=== PATIENT | male | born 1970 | race African-American/Black ===

== ENCOUNTER 2020-07-26 17:30 | Emergency (ER) | payer OTHER, SELFPAY ==
--- NOTE | ~2020-07-26 | XR_ITS ---
XR chest 2V DATE: 07/26/2020 19:21 INDICATION: Right anterior chest pain TECHNIQUE: PA and lateral views COMPARISON: 02/08/2014 PA and lateral chest FINDINGS: Normal heart size. No hilar or mediastinal enlargement. No pulmonary infiltrate or consolid ation, pleural effusion or pulmonary vascular congestion or pneumothorax is detected. Degenerative spurring of the thoracic spine. IMPRESSION: No active cardiopulmonary disease Reviewed, dictated and finalized at location A.
--- NOTE | 2020-07-26 17:33 | ECG_ITS ---
Measurements Intervals [place] Rate: 56 P: 35 NE: 173 QRS: -16 QRSD: 105 T: 7 QT: 372 QTc: 359 Interpretive Statements SINUS BRADYCARDIA VOLTAGE CRITERIA FOR LVH MINIMAL Q WAVES- HIGH LATERAL LEADS BORDERLINE ECG Electronically Signed On 07-26-2020 19:30:36 CDT by Devante Perdo D.O.
[2020-07-26 17:34] VITALS: BP 132/81; PULSE 63; RESP 17; TEMP 36.3; O2SAT 97
--- NOTE | 2020-07-26 19:34 | PC.NURSE ---
CALL FOR PT, NO RESPONSE. ATTEMPTED TO LOOK FOR THE PT, NOT THERE. FORK REPAIRER AWARE
[2020-07-26 21:11] LABS: Basophils Percent Auto 0.3 % (0.2-1.2); Eosinophils Absolute Auto 0.1 K/mm3 (0-0.3); Eosinophils Percent Auto 2.4 % (0-4.4); Hemoglobin 14.2 g/dL (14.0-18.0); Immature Granulocyte Absolute 0.02 K/mm3 (0.00-0.031); Immature Granulocyte Percent A 0.3 % (0-0.5); Lymphocytes Absolute Auto 1.41 K/mm3 (0.9-3.2); Lymphocytes Percent Auto 24.5 % (18.3-44.2); Mean Corpuscular HGB Conc 31.6 g/dl (32-36); Mean Corpuscular Hemoglobin 29.4 pg (26-34); Mean Corpuscular Volume 93.2 fl (80-100); Mean Platelet Volume 12.9 fl (7.4-10.4); Monocytes Absolute Auto 0.6 K/mm3 (0.1-0.6); Monocytes Percent Auto 9.5 % (2.6-8.5); Neutrophils Absolute Auto 3.6 K/mm3 (1.3-6.7); Platelet Count Result 167 k/mm3 (150-375); Red Blood Count 4.83 M/mm3 (4.6-6.20); Red Cell Distribution Width 13.2 % (11.5-14.5); White Blood Count 5.8 K/mm3 (4.5-10.0)
[2020-07-26 21:19] LABS: INR 0.9; Prothrombin Time 12.9 Seconds (11.1-14.7)
[2020-07-26 21:21] LABS: Alanine Aminotransferase 43 U/L (4-50); Albumin Level 4.9 g/dL (3.5-5.1); Alkaline Phosphatase 74 U/L (38-126); Anion Gap 12 mmol/L (8-16); Aspartate Amino Transferase 32 U/L (17-59); Bilirubin,Total 0.6 mg/dL (0.2-1.3); Blood Urea Nitrogen 17 mg/dL (9-20); Calcium 9.9 mg/dL (8.4-10.2); Carbon Dioxide 27 mmol/L (22-30); Chloride 107 mmol/L (98-107); Estimated CRCL calculation 97 ml/min; Estimated Glomerular Filt Rate > 60; Glucose 94 mg/dL (75-110); Lipase 106 U/L (23-300); Potassium 3.7 mmol/L (3.4-5.0); Sodium 146 mmol/L (137-145)
[2020-07-26 21:32] LABS: Troponin I < 0.012 ng/mL (0.000-0.034)
[2020-07-26] MEDS: KETOROLAC (*BKC) 60 MG/2 ML VIAL (22:22)
--- NOTE | 2020-07-26 22:22 | PC.NURSE ---
pt has no IV, asked Dr. Lopez if he wanted 30 IM, MD ordered 60mg IM. meds given as ordered.
--- NOTE | 2020-07-26 23:15 | ED.CHESTPAIN ---
HPI - Chest Pain General Chief Complaint: Chest Pain <David Lopez MD - Last Filed: 08/21/20 20:31> Stated Complaint: chest pain <David Lopez MD - Last Filed: 08/21/20 20:31> Time Seen by Provider: 07/26/20 20:52 <David Lopez MD - Last Filed: 08/21/20 20:31> Source: patient <David Lopez MD - Last Filed: 08/21/20 20:31> Mode of arrival: ambulatory <David Lopez MD - Last Filed: 08/21/20 20:31> Limitations: no limitations <David Lopez MD - Last Filed: 08/21/20 20:31> History of Present Illness HPI narrative: 49-year-old male Patient is in good health For about 3 weeks he has been having periodic right anterior chest pains They are not exertional in fact mainly seem to be mostly exacerbated by pushing on the area which is mildly tender He does not have exertional symptoms, no fever or cough, no abdominal pains, no nausea or vomiting <David Lopez MD - Last Filed: 08/21/20 20:31> Related Data Home Medications: Home Medications Medication Instructions Recorded Confirmed No Home Medications 07/26/20 07/26/20 <David Lopez MD - Last Filed: 08/21/20 20:31> Allergies/Adverse Reactions: Allergies Allergy/AdvReac Type Severity Reaction Status Date / Time No Known Allergies Allergy Mild Verified 07/26/20 17:36 <David Lopez MD - Last Filed: 08/21/20 20:31> Review of Systems Review of Systems: All systems reviewed & are unremarkable except as noted in HPI and below <David Lopez MD - Last Filed: 08/21/20 20:31> Constitutional: Constitutional: Reports no additional constitutional complaints, Denies chills, Denies fever(s) and Denies headache(s) <David Lopez MD - Last Filed: 08/21/20 20:31> Eyes: Eyes: Reports no additional eye complaints and Denies change in vision <David Lopez MD - Last Filed: 08/21/20 20:31> ENT: Denies headache(s) and Denies sore throat <David Lopez MD - Last Filed: 08/21/20 20:31> Cardiovascular: Cardiovascular: Reports chest pain, Denies rapid heart rate, Denies radiating jaw, neck or arm pain and Denies dyspnea <David Lopez MD - Last Filed: 08/21/20 20:31> Respiratory: Respiratory: Denies cough and Denies dyspnea <David Lopez MD - Last Filed: 08/21/20 20:31> Gastrointestinal: Gastrointestinal: Denies nausea and Denies vomiting <David Lopez MD - Last Filed: 08/21/20 20:31> Genitourinary: Genitourinary: Denies dysuria and Denies urinary frequency <David Lopez MD - Last Filed: 08/21/20 20:31> Musculoskeletal: Musculoskeletal: Denies deformity, Denies arthralgias, Denies joint swelling and Denies numbness <David Lopez MD - Last Filed: 08/21/20 20:31> Integumentary/Breasts: Skin/Breast: Denies rash and Denies wounds <David Lopez MD - Last Filed: 08/21/20 20:31> Neurologic: Denies headache(s), Denies focal weakness and Denies numbness <David Lopez MD - Last Filed: 08/21/20 20:31> Psychiatric: Psychiatric: Reports no additional psychiatric complaints <David Lopez MD - Last Filed: 08/21/20 20:31> Endocrine: Endocrine: Reports no additional endocrine complaints <David Lopez MD - Last Filed: 08/21/20 20:31> Hematologic/Lymphatic: Hematologic/Lymphatic: Reports no additional hematologic/lymphatic complaints <David Lopez MD - Last Filed: 08/21/20 20:31> Allergic/Immunologic: Allergic/Immunologic: Reports no additional allergic/immunologic complaints <David Lopez MD - Last Filed: 08/21/20 20:31> PMFSH Social History Social History: Social History Smoking status: Never smoker Second hand tobacco smoke exposure: No Alcohol intake: never Gender identity (if verbalized by the patient): Male <David Lopez MD - Last Filed: 08/21/20 20:31> Exam Const: General: cooperative, no acute distress and alert <David Lopez MD - Last Filed: 08/21/20 20:31> Orientation/consciousness: patient oriented x3 (alert) <David Lopez MD - Last File
[2020-07-26 23:38] VITALS: BP 118/76; PULSE 62; RESP 16; O2SAT 100
[2020-07-27 00:24] LABS: Troponin I < 0.012 ng/mL (0.000-0.034)
[2020-07-27 01:32] VITALS: BP 123/75; PULSE 64; RESP 16; TEMP 36.6; O2SAT 98
== END 2020-07-27 01:33 | disposition home or self-care (01) ==
PROVIDERS: Physician Assistant; Emergency Provider Emergency Medicine; PCP Family Medicine
DX: R07.9 Chest pain, unspecified (principal); R00.1 Bradycardia, unspecified; R94.31 Abnormal electrocardiogram [ECG] [EKG]
CPT/HCPCS: 36415; 71046; 80053; 83690; 84484; 85025; 85610; 85730; 93005; 96374; 99284; J1885

== ENCOUNTER 2023-03-29 13:34 | Emergency (ER) | payer OTHER, SELFPAY ==
--- NOTE | ~2023-03-29 | XR_ITS ---
EXAMINATION: XR chest 2V DATE: 03/29/2023 14:30 INDICATION: Right-sided chest pain TECHNIQUE: Frontal and lateral views of the chest are obtained COMPARISON: 07/26/2020 FINDINGS: The lungs are free of acute opacities. No pleural effusion or pneumothorax. The cardiomedia stinal silhouette is normal. There is moderate thoracic spondylosis. IMPRESSION: 1. No acute cardiopulmonary abnormality. Reviewed, dictated and finalized at location B. 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
[2023-03-29 13:49] VITALS: BP 148/89; PULSE 80; RESP 20; TEMP 36.9; O2SAT 97
--- NOTE | 2023-03-29 14:20 | ECG_ITS ---
Measurements Intervals [place] Rate: 72 P: 46 MN: 194 QRS: -11 QRSD: 110 T: 26 QT: 340 QTc: 375 Interpretive Statements SINUS RHYTHM POSSIBLE LEFT ATRIAL ENLARGEMENT [-0.1mV P-WAVE IN V1/V2] POSSIBLE LEFT VENTRICULAR HYPERTROPHY [VOLTAGE CRITERIA PLUS LAE OR QRS WIDENING] NONSPECIFIC T-WAVE ABNORMALITY BORDERLINE ECG COMPARED TO ECG 07/26/2020 17:41:19 SINUS RHYTHM NOW PRESENT T-WAVE ABNORMALITY NOW PRESENT Electronically Signed On 03-29-2023 16:31:41 FELLING BUCKING SUPERVISOR by Edinson Ames M.D.
--- NOTE | 2023-03-29 14:21 | ED.GENADULT ---
HPI - General Adult General Chief complaint: Unspecified Stated complaint: body aches Time Seen by Provider: 03/29/23 13:52 Source: patient Mode of arrival: ambulatory Limitations: no limitations History of Present Illness HPI narrative: This is a 52 year old male that presents to the ER for cold symptoms present since yesterday. Reports chills, cough, sore throat, rhinorrhea, congestion, myalgias and headache. Reports a burning chest pain. He has not taken any medications for his symptoms today. Denies fever. Related Data Allergies Allergy/AdvReac Type Severity Reaction Status Date / Time No Known Allergies Allergy Mild Verified 07/26/20 17:36 Review of Systems Review of Systems: CONSTITUTIONAL: Reports chills ENT: Reports rhinorrhea, congestion, sore throat CARDIOVASCULAR: Reports chest pain. Denies edema. RESPIRATORY: Reports cough. Denies dyspnea. MUSCULOSKELETAL: Reports back pain, joint pain, and myalgia. NEUROLOGIC: Reports headache All systems reviewed & are unremarkable except as noted in HPI and below PMFSH Past Medical History Medical History (Updated 03/29/23 @ 16:46 by Ya Roper PA-C) No active medical problems Social History Social History Smoking status: Never smoker Second hand tobacco smoke exposure: No Alcohol intake: never Gender identity (if verbalized by the patient): Male Exam Narrative: GENERAL: Well-appearing, well-nourished, and in no acute distress. HEAD: Normocephalic, atraumatic. EYES: EOMI. ENT: Nares clear, no rhinorrhea or epistaxis. Mucous membranes moist. Oropharynx without tonsillar hypertrophy exudate or other lesions. Bilateral TMs pearly henson non-bulging NECK: Supple. No adenopathy or masses. CHEST: Clear to auscultation. No respiratory distress. No wheezes rales or rhonchi HEART: Regular rate and rhythm. No murmur heard. Normal peripheral pulses. EXTREMITIES: Normal range of motion. No edema. SKIN: Warm, dry, no rash. NEURO: No focal deficits. Alert and oriented x3. PSYCH: Normal mood and affect Course Course Emergency Course: Patient updated on his workup and agrees with plan of care Vital Signs Vital signs: Vital Signs Temperature 98.5 F 03/29/23 13:49 Pulse Rate 80 03/29/23 13:49 Respiratory Rate 20 03/29/23 13:49 Blood Pressure 148/89 H 03/29/23 13:49 Pulse Oximetry 97 03/29/23 13:49 Oxygen Delivery Room Air 03/29/23 13:49 Temperature 98.5 F 03/29/23 13:49 Pulse Rate 80 03/29/23 13:49 Respiratory Rate 20 03/29/23 13:49 Blood Pressure 148/89 H 03/29/23 13:49 Pulse Oximetry 97 03/29/23 13:49 Oxygen Delivery Room Air 03/29/23 13:49 Medical Decision Making MDM Narrative Medical decision making narrative: Patient presents to the ER for cold symptoms present over the last couple of days. Reports congestion, sore throat, myalgias, headache. Also endorsing some chest discomfort that is burning in nature. He is afebrile and nontoxic appearing. His vitals are stable. Oxygen saturation is normal on room air. Lungs are clear on exam. CBC without leukocytosis. Shows normocytic anemia with hemoglobin of 13.3. Metabolic panel with mild hypokalemia. This was replaced. Magnesium is normal. Patient is COVID positive. Chest x-ray without acute cardiopulmonary abnormality. EKG without acute ST changes and baseline troponin is negative. His pain was relieved with Pepcid and Tylenol. Patient updated on his workup and agrees with plan of care. He is to follow up with his PCP. He was given warnings to return to the ER Vital Signs Vital Signs: Vital Signs Temperature 98.5 F 03/29/23 13:49 Pulse Rate 80 03/29/23 13:49 Respiratory Rate 20 03/29/23 13:49 Blood Pressure 148/89 H 03/29/23 13:49 Pulse Oximetry 97 03/29/23 13:49 Oxygen Delivery Room Air 03/29/23 13:49 Temperature 98.5 F 03/29/23 13:49 Pulse Rate 80 03/29/23 13:49 Respiratory Rate 20 03/29/23 13:49 Blood Pressure 1
[2023-03-29 14:35] LABS: Influenza A QL RT-PCR Negative (Negative); Influenza B QL RT-PCR Negative (Negative); RSV RNA, RT-PCR Negative (Negative); SARS-CoV-2 RNA PCR Positive (Negative)
[2023-03-29] MEDS: FAMOTIDINE 20 MG TABLET PO (14:54)
[2023-03-29] MEDS: ACETAMINOPHEN 500 MG TABLET 1000 MG PO (14:54)
[2023-03-29 15:08] LABS: Basophils Percent Auto 0.3 % (0.2-1.2); Eosinophils Percent Auto 0.7 % (0-4.4); Hematocrit 41.3 % (42.0-52.0); Hemoglobin 13.3 g/dL (14.0-18.0); Immature Granulocyte Absolute 0.02 K/mm3 (0.00-0.031); Immature Granulocyte Percent A 0.3 % (0-0.5); Mean Corpuscular HGB Conc 32.2 g/dl (32-36); Mean Corpuscular Hemoglobin 29.3 pg (26-34); Mean Platelet Volume 12.1 fl (7.4-10.4); Monocytes Percent Auto 16.7 % (2.6-8.5); Neutrophils Absolute Auto 4.3 K/mm3 (1.3-6.7); Platelet Count Result 146 k/mm3 (150-375); Red Blood Count 4.54 M/mm3 (4.6-6.20); Red Cell Distribution Width 13.1 % (11.5-14.5)
[2023-03-29 15:18] LABS: Alanine Aminotransferase 35 U/L (6-50); Albumin Level 4.5 g/dL (3.5-5.1); Alkaline Phosphatase 77 U/L (38-126); Anion Gap 6 mmol/L (8-16); Aspartate Amino Transferase 26 U/L (17-59); Bilirubin,Total 0.6 mg/dL (0.2-1.3); Blood Urea Nitrogen 11 mg/dL (9-20); Calcium 9.2 mg/dL (8.4-10.2); Carbon Dioxide 30 mmol/L (22-30); Chloride 103 mmol/L (98-107); Estimated CRCL calculation 77 ml/min; Estimated Glomerular Filt Rate > 60; Glucose 109 mg/dL (65-110); Potassium 3.2 mmol/L (3.4-5.0); Sodium 139 mmol/L (137-145)
[2023-03-29 15:30] LABS: Troponin I < 0.012 ng/mL (0.000-0.034)
[2023-03-29 15:46] LABS: Magnesium 2.2 mg/dL (1.6-2.3)
[2023-03-29] MEDS: POTASSIUM CHLORIDE 20 MEQ ER TABLET 40 MEQ PO (16:08)
== END 2023-03-29 17:04 | disposition home or self-care (01) ==
PROVIDERS: Emergency Medicine; Emergency Provider Physician Assistant; PCP Family Medicine
DX: U07.1 COVID-19 (principal); E87.6 Hypokalemia
CPT/HCPCS: 36415; 71046; 80053; 83735; 84484; 85025; 87637; 93005; 99284; A9270

== ENCOUNTER 2024-12-07 10:33 | Emergency (ER) | payer OTHER, SELFPAY ==
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
--- OUTSIDE RECORDS SUMMARY | 2024-12-07 10:35 | XMS_ITS | Data Portability ---
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 Plan of Treatment Reminders Order Date Submit Date Provider Last Modified By Organization Details Last Modified Time Details Appointments None recorded. Lab CMP, serum or plasma 2024 025 BOOMANGEL Cordoba, 2022 [address], [address], [place], [address], 5 12:13:17 lipid panel, serum or plasma 2024 025 HARDWICK Beryl, 2022 Srin[address], [address], [place], [address], 5 12:13:17 CBC w/ auto diff 2024 025 HARDWICK Ramirez, 2022 Sriniv[address], [address], [place], [address], 5 12:13:17 TSH + free T4, serum 2024 025 HARDWICK [facility], 2022 [address], [address], [place], [address], 5 12:13:07 HbA1c (hemoglobi n A1c), blood 2024 025 HARDWICK Ramirez, 2022 Srinivasa [address], [address], [place], [address], 5 12:13:17 CMP, serum or plasma 2023 024 [facility], 2022 Sriniv[address], [address], [place], [address], 4 07:17:06 lipid panel, serum 2023 024 [facility], 2022 Srin[address], [address], [place], [address], 4 07:17:04 CBC w/ auto diff 2023 024 [facility], 2022 [address], [address], [place], [address], 4 07:17:09 TSH + free T4, serum 2023 024 [facility]ICK [facility], 2022 Srin[address], [address], [place], [address], 4 07:17:03 HbA1c (hemoglobi n A1c), blood 2023 024 [facility], 2022 Srinivasa [address], [address], [place], [address], 4 07:17:08 vitamin B12 + folate, serum or blood 2023 024 [facility], [address] [facility], [facility] [address], [place], [address], 4 07:17:07 vitamin D, 25-hydroxy , total, serum 2023 024 [facility], [address] [facility], [address], [place], [address], 4 07:17:10 CBC w/ auto diff 2020 021 BOOM [facility], [address], [address], [place], [address], 08:17:34 vitamin D, 25-hydroxy , total, serum 2020 BOOM [facility], [address], [address], [place], [address], 08:17:37 lipid panel, serum 2020 BOOM [facility], [address], [address], [place], [address], 08:17:35 CMP, serum or plasma 2020 BOOM [facility], [address], [address], [place], [address], 08:17:35 HbA1c (hemoglobi n A1c), blood 2020 BOOM [facility], [address], [address], [place], [address], 08:17:36 Referral sleep medicine referral [address] [facility] [place], [address] [place], [address], 4 09:05:41 gastroente rologist referral [address], [address], [place], [address], 4 08:02:[address] referral - chest pain intermitte ntly; advised to get stress test at [place] [facility]. Some diaphoresi s, no dyspnea, more fatigue than normal. 2020 021 ATHENAFAX Not available 14:50:30 Procedures None recorded. Surgeries None recorded. Imaging XR, knee, 3 view 2024 025 [email or web address] [facility] [address] [place], [address], 5 09:06:20 Medication Orders doxycyclin e hyclate 100 mg tablet 2024 025 [id number], [address], [place], [place], [id number], 5 05:01:32 cyclobenza bessy 5 mg tablet 2024 025 HARDWICK [facility]13812, [address], [place], [place], [id number], 5 05:01:50 cyclobenza bessy 5 mg tablet 2023 024 [facility], [address], [place], [place], [id number], 5 05:01:50 loratadine 10 mg tablet 2023 024 [facility], [address], [place], [place], [id number], 4 16:21:53 cyclobenza bessy 10 mg tablet 2020 021 [facility], [address], [place], [place], [id number], 4 14:23:58 Patient TargetsNo targets recorded. Patient Instructions Encounter Date Encounter Id Patient Instructions Last Modified By Organization Details Last Modified Time 08/03/2020 [id number] chest pain: care instructions [email or web address] Not available 08/03/2020 16:02:36 back care and preventing injuries: care instructions [email or web address] Not available 08/03/2020 16:02:36 06/22/2023 [id number] A healthy lifestyle: care instructions [email or web address] Not available 06/22/2023 14:28:39 costochondritis: care instructions [email or web address] Not available 06/22/2023 16:29:28 06/27/2024 [id number] A healthy lifestyle: care instructions [email or web address] Not available 06/27/2024 12:12:58 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 Some diaphoresis, no dyspnea, more fatigue than normal. Referring Physician: Sonia House, [facility], Encounter Date: 08/03/2020 Ac/Dc Rewinder Referral for Screening for malignant neoplasm of colon Referring Physician: Monserrat Coello [facility], Encounter Date: 06/22/2023 Sleep Medicine Referral for Daytime hypersomnia Referring Physician: Monserrat Coello [facility], Encounter Date: 10/12/2023 Results Created Date Observation Date Name Description Value Unit Range Abnormal Flag Note LastModifiedBy Organization Detail LastModifiedTime 08/15/19 21 08/15/2020 CBC WITH DIFFE RENTI AL/PL ATELE T WBC 5.0 x10e3 /uL 3.4-10 .8 Not Available [facility] ([facility]) [address] [place], [address], 08/15/2020 08:17:34 08/15/1908/15/2020 CBC WITH DIFFE RENTI AL/PL ATELE T RBC 4.31 x10e6 /uL 4.14-5 .80 Not Available [facility] ([facility]) [address] [place], [address], 08/15/2020 08:17:34 08/15/19 21 08/15/2020 CBC WITH DIFFE RENTI AL/PL ATELE T hemoglobin 12.9 g/dL 13.0-1 7.7 below low normal Not Available [facility] ([facility]) [address] [place], [address], 08/15/2020 08:17:34 08/15/19 21 08/15/2020 CBC WITH DIFFE RENTI AL/PL ATELE T hematocrit 39.7 % 37.5-5 1.0 Not Available [facility] ([facility]) [address] [facility], [place], [address], 08/15/2020 08:17:34 08/15/19 21 08/15/2020 CBC WITH DIFFE RENTI AL/PL ATELE T MCV 92 fL 79-97 Not Available [facility] ([facility]) [address] [facility], [place], [address], 08/15/2020 08:17:34 08/15/19 21 08/15/2020 CBC WITH DIFFE RENTI AL/PL ATELE T MCH 29.9 pg 26.6-3 3.0 Not Available [facility] ([facility]) [address] [facility], [place], [address], 08/15/2020 08:17:34 08/15/19 21 08/15/2020 CBC WITH DIFFE RENTI AL/PL ATELE T MCHC 32.5 g/dL 31.5-3 5.7 Not Available [facility] ([facility]) [address] [facility], [place], [address], 08/15/2020 08:17:34 08/15/1908/15/2020 CBC WITH DIFFE RENTI AL/PL ATELE T RDW 12.9 % 11.6-1 5.4 Not Available [facility] ([facility]) [address] [place], [address], 08/15/2020 08:17:34 08/15/19 21 08/15/2020 CBC WITH DIFFE RENTI AL/PL ATELE T platelets 144 x10e3 /uL 150-45 0 below low normal Not Available [facility] ([facility]) [address] [place], [address], 08/15/2020 08:17:34 08/15/19 21 08/15/2020 CBC WITH DIFFE RENTI AL/PL ATELE T neutrophils 63 % not estab. Not Available [facility] ([facility]) [address] [facility], [place], [address], 08/15/2020 08:17:34 08/15/19 21 08/15/2020 CBC WITH DIFFE RENTI AL/PL ATELE T lymphs 25 % not estab. Not Available [facility] ([facility]) [address] [facility], [place], [address], 08/15/2020 08:17:34 08/15/19 21 08/15/2020 CBC WITH DIFFE RENTI AL/PL ATELE T monocytes 9 % not estab. Not Available [facility] ([facility]) [address] [facility], [place], [address], 08/15/2020 08:17:34 08/15/19 21 08/15/2020 CBC WITH DIFFE RENTI AL/PL ATELE T eos 2 % not estab. Not Available [facility] ([facility]) [address] [facility], [place], [address], 08/15/2020 08:17:34 08/15/19 21 08/15/2020 CBC WITH DIFFE RENTI AL/PL ATELE T basos 0 % not estab. 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 0 Not Available [facility] ([facility]) [address] [facility], [place], [address], 08/15/2020 08:17:34 08/15/19 21 08/15/2020 CBC WITH DIFFE RENTI AL/PL ATELE T lymphs (absolute) 1.3 x10e3 /uL 0.7-3. 1 Not Available [facility] ([facility]) [address] [facility], [place], [address], 08/15/2020 08:17:34 08/15/19 21 08/15/2020 CBC WITH DIFFE RENTI AL/PL ATELE T monocytes(ab solute) 0.4 x10e3 /uL 0.1-0. 9 Not Available [facility] ([facility]) [address] [facility], [place], [address], 08/15/2020 08:17:34 08/15/19 21 08/15/2020 CBC WITH DIFFE RENTI AL/PL ATELE T eos (absolute) 0.1 x10e3 /uL 0.0-0. 4 Not Available [facility] ([facility]) [address] [facility], [place], [address], 08/15/2020 08:17:34 08/15/19 21 08/15/2020 CBC WITH DIFFE RENTI AL/PL ATELE T baso (absolute) 0.0 x10e3 /uL 0.0-0. 2 Not Available [facility] ([facility]) [address] [facility], [place], [address], 08/15/2020 08:17:34 08/15/19 21 08/15/2020 CBC WITH DIFFE RENTI AL/PL ATELE T immature granulocytes 1 % not estab. Not Available [facility] ([facility]) [address] [facility], [place], [address], 08/15/2020 08:17:34 08/15/19 21 08/15/2020 CBC WITH DIFFE RENTI AL/PL ATELE T immature grans (abs) 0.0 x10e3 /uL 0.0-0. 1 Not Available [facility] ([facility]) [address] [facility], [place], [address], 08/15/2020 08:17:34 08/15/19 21 08/15/2020 CBC WITH DIFFE RENTI AL/PL ATELE T NRBC PLANNING TECHNICIAN Not Available [facility] ([facility]) [address] [facility], [place], [address], 08/15/2020 08:17:34 08/15/19 21 08/15/2020 CBC WITH DIFFE RENTI AL/PL ATELE T hematology comments: PLANNING TECHNICIAN Not Available [facility] ([facility]) [address] [facility], [place], [address], 08/15/2020 08:17:34 08/15/19 21 08/15/2020 COMP. METAB OLIC PANEL (14) glucose 94 mg/dL 65-99 Not Available [facility] ([facility]) [address] [facility], [place], [address], 08/15/2020 08:17:35 08/15/19 21 08/15/2020 COMP. METAB OLIC PANEL (14) BUN 9 mg/dL 6-24 Not Available [facility] ([facility]) [address] [facility], [place], [address], 08/15/2020 08:17:35 08/15/19 21 08/15/2020 COMP. METAB OLIC PANEL (14) creatinine 0.90 mg/dL 0.76-1 .27 Not Available [facility] ([facility]) [address] [place], [address], 08/15/2020 08:17:35 08/15/19 21 08/15/2020 COMP. METAB OLIC PANEL (14) eGFR if nonafricn AM 101 mL/mi n/1.7 3 >59 Not Available [facility] ([facility]) [address] [facility], [place], [address], 08/15/2020 08:17:35 08/15/19 21 08/15/2020 COMP. METAB OLIC PANEL (14) eGFR if africn AM 116 mL/mi n/1.7 3 >59 Lab carlin curre ntly repor ts eGFR in compl iance with the curre nt recom menda tions of the Natio nal Kidne y Found ation . [facility] will updat e repor ting as new guide lines are publi shed from the NKF-A SN Task force . Not Available [facility] ([facility]) [address] [facility], [place], [address], 08/15/2020 08:17:35 08/15/19 21 08/15/2020 COMP. METAB OLIC PANEL (14) BUN/creatini ne ratio 10 9-20 Not Available [facility] ([facility]) [address] [facility], [place], [address], 08/15/2020 08:17:35 08/15/19 21 08/15/2020 COMP. METAB OLIC PANEL (14) sodium 144 mmol/ L 134-14 4 Not Available [facility] ([facility]) [address] [place], [address], 08/15/2020 08:17:35 08/15/19 21 08/15/2020 COMP. METAB OLIC PANEL (14) potassium 3.5 mmol/ L 3.5-5. 2 Not Available [facility] ([facility]) [address] [place], [address], 08/15/2020 08:17:35 08/15/19 21 08/15/2020 COMP. METAB OLIC PANEL (14) chloride 105 mmol/ L 96-106 Not Available [facility] ([facility]) [address] [place], [address], 08/15/2020 08:17:35 08/15/19 21 08/15/2020 COMP. METAB OLIC PANEL (14) carbon dioxide, total 25 mmol/ L 20 Not Available [facility] ([facility]) [address] [facility], [place], [address], 08/15/2020 08:17:35 08/15/19 21 08/15/2020 COMP. METAB OLIC PANEL (14) calcium 9.0 mg/dL 8.7-10 .2 Not Available [facility] ([facility]) [address] [facility], [place], [address], 08/15/2020 08:17:35 08/15/19 21 08/15/2020 COMP. METAB OLIC PANEL (14) protein, total 7.5 g/dL 6.0-8. 5 Not Available [facility] ([facility]) [address] [facility] [place], [address], 08/15/2020 08:17:35 08/15/19 21 08/15/2020 COMP. METAB OLIC PANEL (14) albumin 4.5 g/dL 4.0-5. 0 Not Available [facility] ([facility]) [address] [facility], [place], [address], 08/15/2020 08:17:35 08/15/19 21 08/15/2020 COMP. METAB OLIC PANEL (14) globulin, total 3.0 g/dL 1.5-4. 5 Not Available [facility] ([facility]) [address] [facility] [place], [address], 08/15/2020 08:17:35 08/15/19 21 08/15/2020 COMP. METAB OLIC PANEL (14) A/G ratio 1.5 1.2-2. 2 Not Available [facility] ([facility]) [address] [facility] [place], [address], 08/15/2020 08:17:35 08/15/19 21 08/15/2020 COMP. METAB OLIC PANEL (14) bilirubin, total 0.4 mg/dL 0.0-1. 2 Not Available [facility] ([facility]) [address] [place], [address], 08/15/2020 08:17:35 08/15/19 21 08/15/2020 COMP. METAB OLIC PANEL (14) alkaline phosphatase 83 IU/L 48-121 Not Available [facility] ([facility]) [address] [place], [address], 08/15/2020 08:17:35 08/15/19 21 08/15/2020 COMP. METAB OLIC PANEL (14) AST (SGOT) 22 IU/L 0-40 Not Available [facility] ([facility]) [address] [place], [address], 08/15/2020 08:17:35 08/15/19 21 08/15/2020 COMP. METAB OLIC PANEL (14) ALT (SGPT) 38 IU/L 0-44 Not Available [facility] ([facility]) [address] [place], [address], 08/15/2020 08:17:35 08/15/19 21 08/15/2020 LIPID PANEL cholesterol, total 162 mg/dL 100-19 9 Not Available [facility] ([facility]) [address] [place], [address], 08/15/2020 08:17:35 08/15/19 21 08/15/2020 LIPID PANEL triglyceride s 67 mg/dL 0-149 Not Available [facility] ([facility]) [address] [place], [address], 08/15/2020 08:17:35 08/15/19 21 08/15/2020 LIPID PANEL HDL cholesterol 36 mg/dL >39 below low normal Not Available [facility] ([facility]) [address] [place], [address], 08/15/2020 08:17:35 08/15/19 21 08/15/2020 LIPID PANEL VLDL cholesterol damian 13 mg/dL 5-40 Not Available [facility] ([facility]) [address] [facility], [place], [address], 08/15/2020 08:17:35 08/15/19 21 08/15/2020 LIPID PANEL LDL chol calc ([facility]) 113 mg/dL 0-99 above high normal Not Available [facility] ([facility]) [address] [place], [address], 08/15/2020 08:17:35 08/15/19 21 08/15/2020 LIPID PANEL comment: PLANNING TECHNICIAN Not Available [facility] ([facility]) [address] [facility], [place], [address], 08/15/2020 08:17:35 08/15/1908/15/2020 HEMOG LOBIN A1C hemoglobin A1C 5.2 % 4.8-5. 6 Predi abete s: 5.7 - 6.4 Diabe emma: >6.4 Glyce radha contr ol for adult s with diabe emma: <7.0 Not Available [facility] ([facility]) [address] [facility], [place], [address], 08/15/2020 08:17:36 08/15/1908/15/2020 PROST ATE-S PECIF IC AG, SERUM prostate specific Ag, serum 1.4 NG/mL 0.0-4. 0 Spencer ECLIA metho dolog y. Accor ding to the Ameri can Urolo gical Assoc iatio n, Serum PSA shoul d decre ase and remai n at undet ectab le level s after radic al prost atect wilian. The AUA defin es bioch emica l recur rence as an initi al PSA value 0.2 ng/mL or great er follo wed by a subse quent confi rmato ry PSA value 0.2 ng/mL or great er. Value s obtai chioma with diffe rent assay metho ds or kits canno t be used inter garcia eably . Resul ts canno t be inter prete d as absol ohogamiut evide nce of the prese nce or absen ce of cornelio kong se. Not Available [facility] ([facility]) [address] [facility], [place], [address], 08/15/2020 08:17:37 08/15/19 21 08/15/2020 VITAM IN D, 25-HY DROXY vitamin D, 25-hydroxy 29.4 NG/mL 30.0-1 00.0 below low normal Vitam in D defic iency has been defin ed by the Insti tute of Medic ine and an Endoc rine Socie ty pract ice guide line as a level of serum 25-OH vitam in D less than 20 ng/mL (1,2) . The Endoc rine Socie ty went on to furth er defin e vitam in D insuf ficie ncy as a level betwe en 21 and 29 ng/mL (2). 1. IOM (Inst itute of Medic ine). 2010. Dieta ry refer ence intak es for calci um and D. Clarisa gamez [place]: The Nat nal Acade [facility] Press . 2. Alexandria leone MF, Rogelio ey NC, Cesario off-F errar i GALVAN, et al. Evalu ation , treat ment, and preve ntion of vitam in D defic iency : an Endoc rine Socie ty clini damian pract ice guide line. JCEM. 2010; 96(7) :1911 -30. Not Available [facility] ([facility]) [address] [facility], [place], [address], 08/15/2020 08:17:37 08/15/19 21 08/15/2020 TSH RFX ON ABNOR MAL TO FREE T4 TSH 0.524 uIU/m L 0.450- 4.500 Not Available [facility] ([facility]) [address] [facility], [place], [address], 08/15/2020 08:17:38 06/26/19 24 06/27/2023 TSH+F REE T4 TSH 0.707 uIU/m L 0.450- 4.500 Not Available [facility] ([facility]) [address] [place], [address], 06/28/2023 07:17:03 06/26/19 24 06/27/2023 TSH+F REE T4 T4,free(dire ct) 1.12 NG/dL 0.82-1 .77 Not Available [facility] ([facility]) [address] [place], [address], 06/28/2023 07:17:03 06/26/19 24 06/27/2023 LIPID PANEL WITH LDL/H DL RATIO cholesterol, total 190 mg/dL 100-19 9 Not Available [facility] ([facility]) [address] [place], [address], 06/28/2023 07:17:04 06/26/19 24 06/27/2023 LIPID PANEL WITH LDL/H DL RATIO triglyceride s 115 mg/dL 0-149 Not Available [facility] ([facility]) [address] [place], [address], 06/28/2023 07:17:04 06/26/19 24 06/27/2023 LIPID PANEL WITH LDL/H DL RATIO HDL cholesterol 33 mg/dL >39 below low normal Not Available [facility] ([facility]) [address] [place], [address], 06/28/2023 07:17:04 06/26/19 24 06/27/2023 LIPID PANEL WITH LDL/H DL RATIO VLDL cholesterol damian 21 mg/dL 5-40 Not Available [facility] ([facility]) [address] [place], [address], 06/28/2023 07:17:04 06/26/19 24 06/27/2023 LIPID PANEL WITH LDL/H DL RATIO LDL chol calc ([facility]) 136 mg/dL 0-99 above high normal Not Available [facility] ([facility]) [address] [place], [address], 06/28/2023 07:17:04 06/26/19 24 06/27/2023 LIPID PANEL WITH LDL/H DL RATIO LDL/HDL ratio 4.1 ratio 0.0-3. 6 above high normal LDL/H DL Ratio Men Women 1/2 Avg.R isk 1.0 1.5 Avg.R isk 3.6 3.2 2X Avg.R isk 6.2 5.0 3X Avg.R isk 8.0 6.1 Not Available [facility] ([facility]) [address] [place], [address], 06/28/2023 07:17:04 06/26/19 24 06/27/2023 COMP. METAB OLIC PANEL (14) glucose 114 mg/dL 70-99 above high normal Not Available [facility] ([facility]) [address] [place], [address], 06/28/2023 07:17:05 06/26/19 24 06/27/2023 COMP. METAB OLIC PANEL (14) BUN 13 mg/dL 6-24 Not Available [facility] ([facility]) [address] [place], [address], 06/28/2023 07:17:05 06/26/19 24 06/27/2023 COMP. METAB OLIC PANEL (14) creatinine 0.93 mg/dL 0.76-1 .27 Not Available [facility] ([facility]) [address] [place], [address], 06/28/2023 07:17:05 06/26/19 24 06/27/2023 COMP. METAB OLIC PANEL (14) eGFR 99 mL/mi n/1.7 3 >59 Not Available [facility] ([facility]) [address] [place], [address], 06/28/2023 07:17:05 06/26/19 24 06/27/2023 COMP. METAB OLIC PANEL (14) BUN/creatini ne ratio 14 9-20 Not Available [facility] ([facility]) [address] [facility], [place], [address], 06/28/2023 07:17:05 06/26/19 24 06/27/2023 COMP. METAB OLIC PANEL (14) sodium 144 mmol/ L 134-14 4 Not Available [facility] ([facility]) [address] [facility], [place], [address], 06/28/2023 07:17:05 06/26/19 24 06/27/2023 COMP. METAB OLIC PANEL (14) potassium 3.6 mmol/ L 3.5-5. 2 Not Available [facility] ([facility]) [address] [facility], [place], [address], 06/28/2023 07:17:05 06/26/19 24 06/27/2023 COMP. METAB OLIC PANEL (14) chloride 103 mmol/ L 96-106 Not Available [facility] ([facility]) [address] [facility], [place], [address], 06/28/2023 07:17:05 06/26/19 24 06/27/2023 COMP. METAB OLIC PANEL (14) carbon dioxide, total 27 mmol/ L 20-29 Not Available [facility] ([facility]) [address] [facility], [place], [address], 06/28/2023 07:17:05 06/26/19 24 06/27/2023 COMP. METAB OLIC PANEL (14) calcium 9.4 mg/dL 8.7-10 .2 Not Available [facility] ([facility]) [address] [place], [address], 06/28/2023 07:17:05 06/26/19 24 06/27/2023 COMP. METAB OLIC PANEL (14) protein, total 7.4 g/dL 6.0-8. 5 Not Available [facility] ([facility]) [address] [facility], [place], [address], 06/28/2023 07:17:05 06/26/19 24 06/27/2023 COMP. METAB OLIC PANEL (14) albumin 4.4 g/dL 3.8-4. 9 Not Available [facility] ([facility]) [address] [facility], [place], [address], 06/28/2023 07:17:05 06/26/19 24 06/27/2023 COMP. METAB OLIC PANEL (14) globulin, total 3.0 g/dL 1.5-4. 5 Not Available [facility] ([facility]) [address] [facility], [place], [address], 06/28/2023 07:17:05 06/26/19 24 06/27/2023 COMP. METAB OLIC PANEL (14) A/G ratio 1.5 1.2-2. 2 Not Available [facility] ([facility]) [address] [place], [address], 06/28/2023 07:17:05 06/26/19 24 06/27/2023 COMP. METAB OLIC PANEL (14) bilirubin, total 0.3 mg/dL 0.0-1. 2 Not Available [facility] ([facility]) [address] [place], [address], 06/28/2023 07:17:05 06/26/19 24 06/27/2023 COMP. METAB OLIC PANEL (14) alkaline phosphatase 101 IU/L 44-121 Not Available [facility] ([facility]) [address] [facility], [place], [address], 06/28/2023 07:17:05 06/26/19 24 06/27/2023 COMP. METAB OLIC PANEL (14) AST (SGOT) 25 IU/L 0-40 Not Available [facility] ([facility]) [address] [place], [address], 06/28/2023 07:17:05 06/26/19 24 06/27/2023 COMP. METAB OLIC PANEL (14) ALT (SGPT) 37 IU/L 0-44 Not Available [facility] ([facility]) [address] [place], [address], 06/28/2023 07:17:05 06/26/19 24 06/27/2023 VITAM IN B12 AND FOLAT E vitamin B12 601 pg/mL 232-12 45 Not Available [facility] ([facility]) [address] [place], [address], 06/28/2023 07:17:07 06/26/19 24 06/27/2023 VITAM IN B12 AND FOLAT E folate (folic acid), serum 8.3 NG/mL >3.0 A serum folat e moody ntrat ion of less than 3.1 ng/mL is consi dered to repre sent clini damian defic iency . Not Available [facility] ([facility]) [address] [facility], [place], [address], 06/28/2023 07:17:07 06/26/19 24 06/27/2023 HEMOG LOBIN A1C hemoglobin A1C 5.6 % 4.8-5. 6 Predi abete s: 5.7 - 6.4 Diabe emma: >6.4 Glyce radha contr ol for adult s with diabe emma: <7.0 Not Available [facility] ([facility]) [address] [place], [address], 06/28/2023 07:17:08 06/26/19 24 06/27/2023 CBC WITH DIFFE RENTI AL/PL ATELE T WBC 5.7 x10e3 /uL 3.4-10 .8 Not Available [facility] ([facility]) [address] [facility], [place], [place], [address], 06/28/2023 07:17:09 06/26/19 24 06/27/2023 CBC WITH DIFFE RENTI AL/PL ATELE T RBC 4.79 x10e6 /uL 4.14-5 .80 Not Available [facility] ([facility]) [address] [facility], [place], [address], 06/28/2023 07:17:09 06/26/19 24 06/27/2023 CBC WITH DIFFE RENTI AL/PL ATELE T hemoglobin 13.9 g/dL 13.0-1 7.7 Not Available [facility] ([facility]) [address] [facility], [place], [address], 06/28/2023 07:17:09 06/26/19 24 06/27/2023 CBC WITH DIFFE RENTI AL/PL ATELE T hematocrit 43.0 % 37.5-5 1.0 Not Available [facility] ([facility]) [address] [facility], [place], [address], 06/28/2023 07:17:09 06/26/19 24 06/27/2023 CBC WITH DIFFE RENTI AL/PL ATELE T MCV 90 fL 79-97 Not Available [facility] ([facility]) [address] [facility], [place], [address], 06/28/2023 07:17:09 06/26/19 24 06/27/2023 CBC WITH DIFFE RENTI AL/PL ATELE T MCH 29.0 pg 26.6-3 3.0 Not Available [facility] ([facility]) [address] [place], [address], 06/28/2023 07:17:09 06/26/19 24 06/27/2023 CBC WITH DIFFE RENTI AL/PL ATELE T MCHC 32.3 g/dL 31.5-3 5.7 Not Available [facility] ([facility]) [address] [facility], [place], [address], 06/28/2023 07:17:09 06/26/19 24 06/27/2023 CBC WITH DIFFE RENTI AL/PL ATELE T RDW 13.0 % 11.6-1 5.4 Not Available [facility] ([facility]) [address] [facility], [place], [address], 06/28/2023 07:17:09 06/26/19 24 06/27/2023 CBC WITH DIFFE RENTI AL/PL ATELE T platelets 165 x10e3 /uL 150-45 0 Not Available [facility] ([facility]) [address] [facility], [place], [address], 06/28/2023 07:17:09 06/26/19 24 06/27/2023 CBC WITH DIFFE RENTI AL/PL ATELE T neutrophils 62 % notest ab. Not Available [facility] ([facility]) [address] [facility], [place], [address], 06/28/2023 07:17:09 06/26/19 24 06/27/2023 CBC WITH DIFFE RENTI AL/PL ATELE T lymphs 25 % notest ab. Not Available [facility] ([facility]) [address] [facility], [place], [address], 06/28/2023 07:17:09 06/26/19 24 06/27/2023 CBC WITH DIFFE RENTI AL/PL ATELE T monocytes 10 % notest ab. Not Available [facility] ([facility]) [address] [facility], [place], [address], 06/28/2023 07:17:09 06/26/19 24 06/27/2023 CBC WITH DIFFE RENTI AL/PL ATELE T eos 3 % notest ab. Not Available [facility] ([facility]) [address] [facility], [place], [address], 06/28/2023 07:17:09 06/26/19 24 06/27/2023 CBC WITH DIFFE RENTI AL/PL ATELE T basos 0 % notest ab. Not Available [facility] ([facility]) [address] [facility], [place], [address], 06/28/2023 07:17:09 06/26/19 24 06/27/2023 CBC WITH DIFFE RENTI AL/PL ATELE T neutrophils (absolute) 3.5 x10e3 /uL 1.4-7. 0 Not Available [facility] ([facility]) [address] [facility], [place], [address], 06/28/2023 07:17:09 06/26/19 24 06/27/2023 CBC WITH DIFFE RENTI AL/PL ATELE T lymphs (absolute) 1.4 x10e3 /uL 0.7-3. 1 Not Available [facility] ([facility]) [address] [facility], [place], [address], 06/28/2023 07:17:09 06/26/19 24 06/27/2023 CBC WITH DIFFE RENTI AL/PL ATELE T monocytes(ab solute) 0.6 x10e3 /uL 0.1-0. 9 Not Available [facility] ([facility]) [address] [place], [address], 06/28/2023 07:17:09 06/26/19 24 06/27/2023 CBC WITH DIFFE RENTI AL/PL ATELE T eos (absolute) 0.2 x10e3 /uL 0.0-0. 4 Not Available [facility] ([facility]) [address] [place], [address], 06/28/2023 07:17:09 06/26/19 24 06/27/2023 CBC WITH DIFFE RENTI AL/PL ATELE T baso (absolute) 0.0 x10e3 /uL 0.0-0. 2 Not Available [facility] ([facility]) [address] [facility], [place], [address], 06/28/2023 07:17:09 06/26/19 24 06/27/2023 CBC WITH DIFFE RENTI AL/PL ATELE T immature granulocytes 0 % notest ab. Not Available [facility] ([facility]) [address] [facility], [place], [address], 06/28/2023 07:17:09 06/26/19 24 06/27/2023 CBC WITH DIFFE RENTI AL/PL ATELE T immature grans (abs) 0.0 x10e3 /uL 0.0-0. 1 Not Available [facility] ([facility]) [address] [facility], [place], [address], 06/28/2023 07:17:09 06/26/19 24 06/28/2023 VITAM IN D, 25-HY DROXY vitamin D, 25-hydroxy 22.9 NG/mL 30.0-1 00.0 below low normal Vitam in D defic iency has been defin ed by the Insti tute of Medic ine and an Endoc rine Socie ty pract ice guide line as a level of serum 25-OH vitam in D less than 20 ng/mL (1,2) . The Endoc rine Socie ty went on to furth er defin e vitam in D insuf ficie ncy as a level betwe en 21 and 29 ng/mL (2). 1. IOM (Inst itute of Medic ine). 2009. Dieta ry refer ence intak es for calci um and D. Clarisa gamez [place]: The Natio nal [facility] Press . 2. Alexandria leone MF, Rogelio nuñez [place], Cesario off-F errar i GALVAN, et al. Evalu ation , treat ment, and preve ntion of vitam in D defic iency : an Endoc rine Socie ty clini damian pract ice guide line. JCEM. 2010; 96(7) :1911 -30. Not Available [facility] ([facility]) [address] [facility], [place], [address], 06/28/2023 07:17:10 07/27/19 21 07/26/2020 XR, chest No observ ation record ed. [email or web address] [place] [address] [address], [place], [address], 08/10/2020 17:36:00 Result Notes None recorded. Problems No Known Problems Medical Equipment None Reported. Allergies No known drug allergies Medications Name Sig Start Date Stop Date Status Note LastModified by Organization Details LastModified Time cyclobenzap rine 10 mg tablet TAKE 1 TABLET BY MOUTH THREE TIMES DAILY NEEDED 06/21 completed Not Available Not Available Not Available atorvastati n 10 mg tablet TK 1 T PO QD HS 04/01 completed Not Available Not Available Not Available ampicillin 500 mg capsule Take 1 capsule every 6 hours by oral route as directed for 21 days. 08/29 completed Not Available Not Available Not Available meloxicam 15 mg tablet Take 1 tablet every day by oral route with meals. 04/01 completed Not Available Not Available Not Available ciprofloxac in 500 mg tablet Take 1 tablet every 12 hours by oral route before meals for 21 days. 07/02 completed Not Available Not Available Not Available doxycycline hyclate 100 mg tablet Take 1 tablet twice a day by oral route with meal(s) for 10 days. 07/14 completed Not Available Not Available Not Available loratadine 10 mg tablet TAKE 1 TABLET BY MOUTH EVERY MORNING FOR 30 DAYS FOR ALLERGIES active Not Available Not Available No t Available cyclobenzap rine 5 mg tablet Take 1 tablet twice a day by oral route as needed for 7 days, for chest spasm. 07/11 completed Not Available Not Available Not Available tadalafil 5 mg tablet TAKE 1 TABLET BY MOUTH EVERY DAY 06/21 completed Not Available Not Available Not Available Co Q-10 200 mg capsule Take 1 capsule every day by oral route at bedtime. 04/01 completed Not Available Not Available Not Available sildenafil (pulmonary hypertensio n) 20 mg tablet Take 4 tablets as needed by oral route as directed. 04/01 completed Not Available Not Available Not Available Paxlovid 300 mg (150 mg x 2)-100 mg tablets in a dose pack TK 2 NIRMATREL VIR TS AND 1 RITONAVIR T TOGETHER PO TWICE DAILY FOR 5 DAYS 06/21 completed Not Available Not Available Not Available Vitals Date Recorded Body height Body mass index (BMI) Body weight Oxygen saturation Oxygen saturation in Arterial blood by Pulse oximetry Heart rate Respiratory rate Systolic And Diastolic Provider Name and Address Organization Details Last Updated DateTime 4 182.88 cm 32.1 kg/m2 250543. 39 g 99 % 99 % 64 /min 16 /min 133/83 mm[Hg] Nettie Mclaughlin [facility] 4 14:23:16 Date Recorded Systolic And Diastolic Provider Name and Address Organization Details Last Updated DateTime 06/27/2024 140/80 mm[Hg] TOR TORRES Attn: Accounting,[address] [place], [address], [facility] 06/27/2024 12:21:05 Date Recorded Body height Body mass index (BMI) Body weight Oxygen saturation Oxygen saturation in Arterial blood by Pulse oximetry Heart rate Respiratory rate Systolic And Diastolic Provider Name and Address Organization Details Last Updated DateTime 5 182.88 cm 31.6 kg/m2 766173. 02 g 95 % 95 % 71 /min 17 /min 145/91 mm[Hg] Clover Ragsdale [facility] 5 12:01:48 Date Recorded Body height Oxygen saturation Oxygen saturation in Arterial blood by Pulse oximetry Heart rate Body mass index (BMI) Body weight Systolic And Diastolic Provider Name and Address Organization Details Last Updated DateTime 1 182.88 cm 97 % 97 % 85 /min 29.3 kg/m2 00124.9 5 g 110/82 mm[Hg] Ryan Carlisle [facility] 1 15:40:30 Date Recorded Heart rate Systolic And Diastolic Provider Name and Address Organization Details Last Updated DateTime 10/12/2023 60 /min 138/84 mm[Hg] TOR TORRES Attn: Accounting,[address] [place], [address], [facility] 10/12/2023 09:58:58 Date Recorded Body height Body mass index (BMI) Body weight Oxygen saturation Oxygen saturation in Arterial blood by Pulse oximetry Respiratory rate Systolic And Diastolic Provider Name and Address Organization Details Last Updated DateTime 4 182.88 cm 32 kg/m2 940837. 8 g 97 % 97 % 16 /min 147/91 mm[Hg] Nettie Mclaughlin [facility] 4 09:40:58 Social History Question Answer Notes LastModified by Organizat ion Details LastModified Time Tobacco Smoking Status Never Smoker Mónica Rievra MA null, [facility] 04/02/2019 15:48:18 Do You Have An Advance Directive? No Information not available 04/02/2019 What Is Your Level Of Caffeine Consumption? None Information not available 04/02/2019 How Much Tobacco Do You Chew? None Information not available 04/02/2019 What Type Of Diet Are You Following? REGULAR Information not available 04/02/2019 Which Illicit Or Recreational Drugs Have You Used? N/a Information not available 04/02/2019 Education 4 Year College Information not available 04/02/2019 Hard Of Hearing Or Deaf In One Or Both Ears? No Information not available 04/02/2019 Legally Blind In One Or Both Eyes? No Information no t available 04/02/2019 Live Alone Or With Others? With Others Information not available 04/02/2019 What Was The Date Of Your Most Recent Tobacco Screening? 06/27/2024 Information not available 06/27/2024 How Many Children Do You Have? 0 Information not available 04/02/2019 Smoke Alarm In Home Yes Information not available 04/02/2019 Are You Passively Exposed To Smoke? No Information no t available 04/02/2019 How Much Tobacco Do You Smoke? No Information not available 04/02/2019 General Stress Level High Information not available 10/08/2019 On What Date Was Tobacco Cessation Counseling Provided? 06/27/2024 Information not available 06/27/2024 Sex: Unknown Functional Status Question Answer Note LastModified by Organizat ion Details LastModified Time What is your level of alcohol consumption? None Information not available 04/02/2019 Do you or have you ever used smokeless tobacco? Never used smokeless tobacco Information not available 04/02/2019 Are you currently employed? Yes Information not available 04/02/2019 Are you able to care for yourself independently? Yes Information not available 04/02/2019 Do you or have you ever used e-cigarettes or vape? Never used electronic cigarettes Information not available 04/02/2019 What is your exercise level? Occasional Information not available 04/02/2019 Mental Status None recorded. Family History Nothing Reported. Medical History Condition Response Coronary Artery Disease N Other N Atrial Fibrillation N High Blood Pressure N Thyroid Problems N Kidney or Bladder Problems N Depression N COPD N Blood Clots N GI Problems N Skin Problems N Eating Disorder N Anemia N Heart Attack ([place]) N Diabetes N Anxiety Disorder N Muscle, Joint, or Bone Problems N Seizures/Epilepsy N Acid Reflux (GERD) N Cancer N Stroke N Allergies N Asthma N ADHD N Substance Abuse N High Cholesterol N Hepatitis N Liver Disease N Schizophrenia N Headaches N Osteoporosis N Heart Failure N Immunizations Vaccine Type Date Status Note Provider Nam e and Address Organization Details Recorded Time Hep B, adult 4 completed Not Available [facility] 06/27/2024 11:55:31 Influenza, split virus, trivalent, preservative 4 completed Not Available [facility] 06/27/2024 11:55:31 COVID-19, mRNA, LNP-S, PF, 30 mcg/0.3 mL dose 1 completed Not Available [facility] 06/27/2024 11:55:31 COVID-19, mRNA, LNP-S, PF, 30 mcg/0.3 mL dose 1 completed SALVATORE [place], [place] - [facility] 08/01/2024 15:48:01 COVID-19, mRNA, LNP-S, PF, 30 mcg/0.3 mL dose 1 completed SALVATORE [place], [place] - [facility] 08/01/2024 15:48:01 COVID-19, mRNA, LNP-S, PF, 100 mcg/0.5mL dose or 50 mcg/0.25mL dose 1 completed Mónica Rivera MA [facility], [place] - [facility] 08/01/2024 15:49:18 Past Encounters Encounter ID Performer Location Encounter Start Date Encounter Closed Date Diagnosis/Indication Diagnosis SNOMED-CT Code Diagnosis ICD10 Code Diagnosis IMO Codes Diagnosis Note [id number] Sonia House MD [facility] [address] [place] [address] 04/02/2019 15:23:24 04/08/2019 08:48:45 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 [id number] Sonia House MD [facility] [address] [place] [address] 04/24/2019 10:28:03 04/29/2019 09:24:44 Hypercholesterolemia 15134704 E78.00 discussed low fat, low carb diet, and encouraged exercise. [id number] Kalia Casper MD [facility] [address] [place] [address] 05/10/2019 10:36:47 06/04/2019 13:59:22 Complaining of erectile dysfunction 849437424 N52.9 Male infertility 7928308 N46.9 Need to order test. [id number] Kalia Casper MD [facility] [address] [place] [address] 07/24/2019 10:21:40 08/19/2019 15:24:41 Complaining of erectile dysfunction 635570968 N52.9 Urinary tr act infectious disease 71501703 N39.0 [id number] Kalia Casper MD [facility] [address] [place] [address] 07/31/2019 10:41:47 08/16/2019 16:29:26 Urinary tract infectious disease 78953350 N39.0 [id number] Kalia Casper MD [facility] [address] [place] [address] 08/30/2019 11:07:37 2019 13:39:20 Male infertility 9040828 N46.9 Need to order test. Semen exam: abnormal 167 022268 R86.9 Complainin g of erectile dysfunction 582387105 N52.9 [id number] Kalia Casper MD [facility] [address] [place] [address] 10/04/2019 10:42:30 10/12/2019 11:03:25 Complaining of erectile dysfunction 527751595 N52.9 [id number] Sonia House MD [facility] [address] [place] [address] 10/08/2019 14:46:16 10/15/2019 07:09:56 Chronic low back pain 742436293 M54.5 due to pain in muscles in back, will try co q 10; patient says he has seen a neurologis t for the pain in his back. Hypercholesterolemia 136 44726 E78.00 discussed low fat, low carb diet, and encouraged exercise. [id number] [facility] [address] [place] [address] 04/01/2020 16:07:25 04/03/2020 09:52:17 Complaining of erectile dysfunction 300069893 N52.9 [id number] Kalia Casper MD [facility] [address] [place] [address] 04/29/2020 16:16:35 04/30/2020 08:15:19 Complaining of erectile dysfunction 961160758 N52.9 [id number] Sonia House MD [facility] [address] [place] [address] 07/22/2020 08:05:18 07/22/2020 17:23:16 [id number] Sonia House MD [facility] [address] [place] [address] 08/03/2020 15:25:30 08/05/2020 09:35:44 Chest pain 86621405 R07.9 completed coronaviru s shots July 03. Low back pain 713543762 M54.5 Hyperlipidemia 08762423 E78.5 discussed low fat, low carb diet, and encouraged exercise. Adult heal th examination 963716350 Z00.00 [id number] Dc taylor MD [facility] [address] [place] [address] 06/22/2023 14:18:10 06/22/2023 14:53:01 Obesity 613475898 E66.9 BMI 32.1discus sed increasing exercise and healthier food options, high protein, low fat diet Fatigue 13703964 R53.83 x3 mowakes up feeling tired, sleeps well at nightcheck vitaminsf/ u in 1 mo Screening for malignant neoplasm of colon 176346633 Z12.11 has never had colon cancer screen Depression screening 171 054723 Z13.31 PHQ 0 Allergic rhinitis 880444 04 J30.9 c/o rhinorrhea , PND, coughing up mucus of different colors since he had COVID 3 months agostart claritin Snoring 39539253 R06.83 x3 yrscould be related to sleep apneaif labs normal, will refer for sleep study Costal chondritis 304974 04 M94.0 since COVID 3 months agoc/o sternal pain with stretching /opening up his chestmost likely costal chondritis rec'd pt take NSAIDs daily for 2 wksf/u in 1 months [id number] Bandar Ochoa MD [facility] [address] [place] [address] 10/12/2023 09:32:30 10/12/2023 09:57:41 Screening for malignant neoplasm of colon 310549656 Z12.11 has never had colon cancer screenprin jorge off referral and encouraged pt to call to schedule appt Depression screening 171 758626 Z13.31 PHQ 0 Daytime hypersomnia 3177 017273 7954 G47.19 labs normal, Vit D 22refer for sleep study Low back strain 07124715 1 S39.012A x2 mono trauma or injuryno meds for symptomsfe els tight across his lower backPEx- nl, FROM of lumbar spinerec'd stretching , heating pad, NSAIDS PRNtrial low dose muscle relaxer for sleepf/u in 2 wks if sx do not improve [id number] Bandar Ochoa MD [facility] [address] [place] [address] 06/27/2024 11:46:47 06/27/2024 12:20:16 Pain of knee region 9458062642 M25.561 84923767 x3 wksno trauma or injurypain with flexion and extensionP Ex- nlordered XR R knee Costal chondritis 971959 04 M94.0 05724 06/27/24: cramping pain to R side of chest, tender to push onpain is very quick, stretching helpstrial muscle relaxer 06/2023: since COVID 3 months agoc/o sternal pain with stretching /opening up his chestmost likely costal chondritis rec'd pt take NSAIDs daily for 2 wksf/u in 1 months Obese class I 1916292917 00658 E66.811 2796110726 BMI 32.1discus sed increasing exercise and healthier food options, high protein, low fat diet Pruritic rash 05896138 L 28.2 117190 had similar rash in [place], tx with abx and went away for 2 yrsthick lesions that scab over and itch, present to arms and backPEx- circular raised 2 mm dark colored lesions to bilateral upper arms, varying stages of scarringtr ial doxycyclin e Elevated blood-pressure reading without diagnosis of hypertension 404643904 R03.0 [id number] checked at [facility] 3 days ago, 120/80in office, 140/80advi sed to check BP at home, goal BP <120/70, f/u with BP log in 1 wk Depression screening 171 899070 Z13.31 5595872 PHQ 1 Health Concerns Section Related Observation LastModified by Organization Detai ls LastModified Time None Recorded Concern Status LastModified by Organization Details LastModified Time None Recorded Advance Directives Directive N: Payers Insurance Date Sequence Insurance Name Policy Number Policy De La Fuente Covered Member ID De La Fuente Member ID Guarantor Name 06/27/2024 1 *SELF PAY* Julieth Gao 08/02/2024 SLIDING FEE SCHEDULE - DISCOUNT Rodrigo Gao 06/27/2024 1 [facility] - DOS PRIOR TO 2020 (MEDICAID REPLACEMENT - HMO) Rodrigo Valdeztoshia [id number] Rodrigo Pressley Murray 04/02/2019 1 *SELF PAY* Julieth Pressley Murray 06/27/2024 1 [facility] - DOS ON OR AFTER 20 (MEDICAID REPLACEMENT - HMO) Rodrigo Valdeztoshia [id number] Rodrigo Pressley Murray Notes Date Note Type Note Provider Name and Address Organization Details Recorded Time 1 text/html HyperlipidemiaReported by PatientHPIFor type of hyperlipidemia, patient reportscombined. For duration, patient reportschronic. For complications, patient reportscardiovascular disease. For control, patient reportsusually well controlled. For compliance, patient reportscompliant with dietandexercises. For current therapy, (quit taking atorvastatin in 2019 when he had chol 168, trig 62, and ldl 121.). Back PainReported by PatientHPIFor quality, patient reportsdull. For severity, patient reportsmoderate (5-7). For aggravating factors, patient reportsmovement/positioning . For location, patient reportspain is not radiating(lumbar spine). For duration, patient reportschronic. For onset/timing, patient reportsrecurrent episode. For alleviating factors, patient reportsrest. For associated symptoms, patient reportsno fever,no weak limbs,no numbness of the legs/feet,no tingling,no incontinence, andno shortness of breath.better with cyclobenzaprine Angina/Chest PainReported by PatientHPIFor location, patient reportsradiates to the right armbut reportsmidsternal. For quality, patient reportspressure,squeezing, andheaviness. For context, patient reportsexertional,occurs with emotional stress, andoccurs with physical stress. For aggravating factors, patient reportsworse with activityandworse with stress/emotional upset. For associated symptoms, patient reportsshortness of breath,exertional dyspnea,decrease in exercise capacity,fatigue,diaphoresi s, andlightheadedness. For severity, patient reportsmoderate. For duration, patient reportslasts seconds. For onset/timing, patient reportsintermittent. For alleviating factors, patient reportsrelieved with restandrelieved with sitting.ROS as noted in the HPI Sonia House MD Attn: Accounting,[address] [facility], [place], [address], [facility] 08/10/2020 17:45:02 4 text/html ROS as noted in the HPI Pt presents to establish care as a new patient. C/o fatigue x3 months, wakes up feeling tired. Reports that he is constantly on the go, running errands, and fixing up old cars. No difficulty sleeping at night, sleeps 8 hrs/night. States that he started snoring a couple years ago and attributes this to weight gain. Admits to a good appetite, eats based food. Declines excessive caffeine intake. Denies fever, chills, SOB, n/v/d, abd pain, dizziness, weakness, or headaches. TOR TORRES Attn: Accounting,[address] [facility], [place], [address], [facility] 06/22/2023 16:30:46 4 text/html ROS as noted in the HPI Pt presents to discuss lab results and low back pain. C/o low back pain x2 months. No trauma or injury. 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 He has not taken any OTC meds for pain. Denies saddle anesthesia or loss of bowel/bladder. TOR TORRES Attn: Accounting,[address] [facility], [place], [address], [facility] 10/12/2023 16:21:48 5 text/html ROS as noted in the HPI Patient presents to discuss blood pressure, cholesterol levels, right knee pain, itchy rash, and right-sided chest pain. States that he developed right knee pain 3 weeks ago, no trauma or injury. States he is unable to fully extend or fully flex right knee without pain. Complains of bumpy/itchy rash to upper arms and back, relief in the past when he was given antibiotic from [place]. Rash did not come back for another 2 years. Denies fever, chills, SOB, n/v/d, abd pain, dizziness, weakness, or headaches. TOR TORRES Attn: Accounting,[address] [place], [address], [place] [facility] 06/27/2024 14:09:36
--- OUTSIDE RECORDS SUMMARY | 2024-12-07 10:35 | XMS_ITS | Clinical Summary ---
Author Organization [facility] [address] Address [address] [place] [address] Care Team Providers Care New Accounts Banking Representative Name Role Phone Nabeel Bird MD Primary Care Provider [phone] Allergies No known active allergies Medications cefdinir (OMNICEF) 300 mg capsule Take 300 mg by mouth daily 0 07/05/2018 Active simvastatin (ZOCOR) 20 mg tablet Take 20 mg by mouth daily 2 06/14/2018 Active Active Problems Problem Noted Date Diagnosed Date Other chest pain 07/13/2018 Hypercholesteremia 07/13/2018 Medical History Medical History Date Comments Hypercholesterolemia Family History Medical History Relation Name Comments Other Other No family histo ry of heart disease Relation Name Status Comments Other No family histo ry of heart disease Social History Tobacco Use Types Packs/Day Years Used Date Smoking Tobacco: Never Smokeless Tobacco: Never Personal Safety Answer Date Recorded Getting School Help Needed Not on file 04/22 Sex and Gender Information Value Date Recorded Sex Assigned at Not on file Legal Sex Male 11:49 AM CDT Gender Identity Not on file Sexual Orientation Not on file 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 Not on file Not on file Obstetrics History Last Filed Vital Signs Vital Sign Reading Time Taken Comments Blood Pressure 120/80 07/11/2018 10:28 AM CDT Pulse 54 07/11/2018 10:28 AM CDT Temperature - - Respiratory Rate - - Oxygen Saturation 96% 07/11/2018 10:28 AM CDT Inhaled Oxygen Concentration - - Weight 95.3 kg (210 lb) 07/11/2018 10:28 AM CDT Height 182.9 cm (6') 07/11/2018 10:28 AM CDT Body Mass Index 28.48 07/11/2018 10:28 AM CDT Plan of Treatment Not on file Insurance [facility] Care Teams New Accounts Banking Representative Relationship Specialty Start Date End Date Nabeel Bird MD PCP - General Emergency Medicine 06/15/18
[2024-12-07 10:43] VITALS: BP 162/99; PULSE 63; RESP 20; TEMP 36.8; O2SAT 100
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
--- NOTE | 2024-12-07 11:11 | ECG_ITS ---
Test Date: 2024-12-07 11:47:43 Measurements Intervals [place] Rate: 57 P: 50 WI: 189 QRS: -23 QRSD: 115 T: 60 QT: 412 QTc: 401 Interpretive Statements SINUS BRADYCARDIA WITH SINUS ARRHYTHMIA LEFT ATRIAL ENLARGEMENT [-0.15mV P WAVE IN V1/V2] BORDERLINE LEFT AXIS DEVIATION [QRS AXIS < -20] POSSIBLE LEFT VENTRICULAR HYPERTROPHY [VOLTAGE CRITERIA PLUS LAE OR QRS WIDENING] NONSPECIFIC T-WAVE ABNORMALITY No previous ECG available for comparison Electronically Signed On 12-07-2024 12:04:07 CDT by Vinicio David M.D.
[2024-12-07 12:25] LABS: Hematocrit 41.5 % (42.0-52.0); Hemoglobin 13.5 g/dL (14.0-18.0); Immature Granulocyte Percent A 0.5 % (0-0.5); Lymphocytes Absolute Auto 1.24 K/mm3 (0.9-3.2); Mean Corpuscular HGB Conc 32.5 g/dl (32-36); Mean Corpuscular Hemoglobin 28.6 pg (26-34); Mean Corpuscular Volume 87.9 fl (80-100); Nucleated Red Blood Cells Absolute Auto 0.000 K/mm3 (0.0-0.012); Nucleated Red Blood Cells Perc 0.0 % (0.0-0.2); Platelet Count Result 218 k/mm3 (150-375); Red Blood Count 4.72 M/mm3 (4.6-6.20); White Blood Count 6.5 K/mm3 (4.5-10.0)
[2024-12-07] MEDS: SODIUM CHLORIDE 0.9% IV 1,000 ML 999 ML IV CONT (12:25)
[2024-12-07] MEDS: HYDROmorphone HCL INJ (*CRX) 1 MG/ML SYR 0.5 MG IV PUSH (12:25)
[2024-12-07] MEDS: ONDANSETRON INJ 4 MG/2 ML VIAL IV PUSH (12:25)
[2024-12-07 12:34] VITALS: BP 158/96; PULSE 66; RESP 17; O2SAT 98
[2024-12-07 13:14] LABS: Alanine Aminotransferase 37 U/L (6-50); Albumin Level 4.5 g/dL (3.5-5.1); Alkaline Phosphatase 87 U/L (38-126); Anion Gap 9 mmol/L (4-12); Aspartate Amino Transferase 32 U/L (17-59); Bilirubin,Total 0.8 mg/dL (0.2-1.3); Blood Urea Nitrogen 12 mg/dL (9-20); Calcium 8.5 mg/dL (8.4-10.2); Carbon Dioxide 29 mmol/L (22-30); Chloride 105 mmol/L (98-107); Estimated CRCL calculation 103 ml/min; Estimated Glomerular Filt Rate > 60; Glucose 104 mg/dL (65-110); Lipase 65 U/L (23-300); Potassium 3.2 mmol/L (3.4-5.0); Sodium 143 mmol/L (137-145); Total Protein 8.1 g/dL (6.3-8.2)
[2024-12-07 13:24] LABS: Add Urine Microscopic? NO; Appearance Urine Clear (Clear); Glucose Urine UA Negative (Negative); Leukocyte Esterase Ur Negative LEU/UL (Negative); Nitrate Urine Negative (Negative); Specific Grav Ur 1.009 (1.001-1.035)
== END 2024-12-07 15:19 | disposition home or self-care (01) ==
PROVIDERS: Emergency Provider Emergency Medicine
DX: S20.212A Contusion of left front wall of thorax, initial encounter (principal); S30.11XA Contusion of abdominal wall, initial encounter; R00.1 Bradycardia, unspecified; R94.31 Abnormal electrocardiogram [ECG] [EKG]; V53.5XXA Driver of pick-up truck or van injured in collision with car, pick-up truck or van in traffic accident, initial encounter
CPT/HCPCS: 36415; 70450; 71260; 72125; 73030; 73130; 73562; 74177; 80053; 81003; 83690; 85025; 93005; 96361; 96374; 96375; 99284; J1171; J2405; J7030; Q9967